=== PATIENT | male | born 1995 | race Caucasian/White ===

== ENCOUNTER 2018-07-27 14:10 | Outpatient (REF) | payer OTHER, SELFPAY | END 2018-07-27 14:30 | LOC: LBN 14:10 | PROVIDERS: PCP Physician Assistant; Visit Provider Physician Assistant | DX: L02.01 Cutaneous abscess of face (principal) | CPT/HCPCS: 87077; 87070; 87186; 87205 ==

== ENCOUNTER 2018-11-30 15:08 | Outpatient (CLI) | payer OTHER, SELFPAY ==
[2018-11-30 16:58] LABS: TSH (W/Ref FT4) 0.87 uIU/mL (0.358-3.74)
== END 2018-11-30 15:28 ==
PROVIDERS: PCP Physician Assistant; Visit Provider Otolaryngology
DX: J38.2 Nodules of vocal cords (principal)
CPT/HCPCS: 36415; 84443

== ENCOUNTER 2022-08-24 02:10 | Outpatient (CLI) | payer BC, SELFPAY ==
[2022-08-24 09:12] LABS: Calculated LDL 114 mg/dL (<100); Cholesterol 189 mg/dL (<200); HDL Cholesterol 42 mg/dL (40-60); Triglyceride 165 mg/dL (<150)
== END 2022-08-24 02:11 | disposition home or self-care (01) ==
LOC: LBO 02:11
PROVIDERS: PCP Nurse Practitioner Family; Visit Provider Nurse Practitioner Family
DX: Z13.220 Encounter for screening for lipoid disorders (principal)
CPT/HCPCS: 36415; 80061